=== PATIENT | male | born 1985 | race Caucasian/White ===

== ENCOUNTER 2016-11-02 10:35 | Emergency (ER) | payer OTHER ==
[2016-11-02 10:50] VITALS: BP 152/71; PULSE 90; TEMP 98.8; BMI 25.7
--- NOTE | 2016-11-02 11:02 | PDOC ---
History of Present Illness - General History Source: Patient Exam Limitations: No Limitations - History of Present Illness Initial Comments: 11/02/16 11:23 30y M hx of opiate abuse presents wanting detox via EMS. The pt states he feels an 'empty stomach' and wants something 'quick' that will prevent any further withdrawal symptoms. Pt dnies any nausea/vomiting. States he took EMS wanting to go to detox, but they said they couldnt take him directly to detox. pt has no other complaints including fever/chills,cough, cp, headache. pt last used oxycontin yesterday. pt staets he typically abuses any type of opiates that he can get his hands on. <Juan Jamison - Last Filed: 11/02/16 11:22> <Zbigniew Bello - Last Filed: 11/02/16 13:29> - General Chief Complaint: Substance Abuse Stated Complaint: WITHDRAWALS/DIZZINESS Time Seen by Provider: 11/02/16 10:56 Past History - Past Medical History Psychiatric Problems: Yes (BIPOLAR) - Psycho/Social/Smoking Cessation Hx Suicidal Ideation: No Smoking Status: Yes Smoking History: Current every day smoker Have you smoked in the past 12 months: Yes Number of Cigarettes Smoked Daily: 20 Information on smoking cessation initiated: No Hx Alcohol Use: No Drug/Substance Use Hx: Yes Substance Use Type: Heroin, Marijuana <Juan Jamison - Last Filed: 11/02/16 11:22> <Zbigniew Bello - Last Filed: 11/02/16 13:29> - Past Medical History Allergies/Adverse Reactions: Allergies Allergy/AdvReac Type Severity Reaction Status Date / Time No Known Allergies Allergy Verified 05/01/16 12:13 Home Medications: Ambulatory Orders Dextroamphetamine/Amphetamine [Adderall Xr 20 mg Capsule] 30 mg PO DAILY Divalproex Sodium [Depakote ER] 500 mg PO HS 11/02/16 Review of Systems - Review of Systems Able to Perform ROS?: Yes Comments:: 11/02/16 11:26 Constitutional - no reported Fever, Chills, HEENT: no reported vision changes, sore throat Respiratory: no reported cough, sob, hemoptysis Cardiac: no reported chest pain, palpitations, light headedness, leg swelling Abd/GI: "empty stomach" no reported nausea, vomiting, blood per rectum, melena , diarrhea : no reported dysuria, frequency, discharge Musculskelatal - no reported back pain, joint swelling skin - no reported bruising, erythema, rash neurological: no reported headache, numbness, focal weakness, tingling, ataxia, hematologic: no reported anemia, easy bruising, easy bleeding <Juan Jamisno - Last Filed: 11/02/16 11:22> *Physical Exam - Vital Signs Last Vital Signs Temp Pulse Resp BP Pulse Ox 98.8 F 90 20 152/71 99 11/02/16 10:48 11/02/16 10:48 11/02/16 10:48 11/02/16 10:48 11/02/16 10:48 - Physical Exam Comments: 11/02/16 11:26 GENERAL: The patient is awake, alert, and fully oriented, Nontoxic - in no acute distress. HEAD: Normocephalic, atraumatic. EYES: pupils 4mm and symmetrically reactive to light, extraocular movements intact, sclera anicteric, conjunctiva clear. ENT: Normal voice, Moist mucous membranes. LUNGS: Breath sounds equal, clear to auscultation bilaterally. No wheezes, no rhonchi, no rales. HEART: Regular rate and rhythm, normal S1 and S2 without murmur, rub or gallop. ABDOMEN: Soft, nontender, normoactive bowel sounds. No guarding, no rebound. EXTREMITIES: Normal range of motion, NEUROLOGICAL: No facial assymetry, Normal speech, PSYCH: Normal mood, normal affect. <Juan Jamison - Last Filed: 11/02/16 11:22> - Vital Signs Last Vital Signs Temp Pulse Resp BP Pulse Ox 98.8 F 90 20 152/71 99 11/02/16 10:48 11/02/16 10:48 11/02/16 10:48 11/02/16 10:48 11/02/16 10:48 <Zbigniew Bello - Last Filed: 11/02/16 13:29> Medical Decision Making - Medical Decision Making 11/02/16 11:01 30y M hx of opiate abuse presents via EMS for detox. Pt endorses some abd cramping, but dneis any n/v, diarrhea, fever/chills. on exam the pt appears well , abd is soft nontender. Pt is able to tolerate oral intake will transfer the patient to [facility] for detox discussed with dr. petersen and intake states we can send him to intake for further evaluation. I discussed the physical exam findings, ancillary test results and final diagnoses with the patient. I answered all of the patient's questions. The patient was satisfied with the care received and felt comfortable with the discharge plan and treatment plan. The patient will call their primary care physician within 24 hours to arrange follow-up and will return to the Emergency Department with any new, persistent or worsening symptoms. A portion of this note was documented by scribe services under my direction. I have reviewed the details of the note, within reason, and agree with the documentation with the following case summary and management plan written by me <Juan Jamison - Last Filed: 11/02/16 11:22> *DC/Admit/Observation/Transfer - Discharge Dispostion Admit: No <Juan Jamison - Last Filed: 11/02/16 11:22> - Attestations Scribe Attestion: Documentation prepared by Zbigniew Bello, acting as medical sales specialist for Juan Jamison MD. <Zbigniew Bello - Last Filed: 11/02/16 13:29> Diagnosis at time of Disposition: Opiate withdrawal - Discharge Dispostion Disposition: HOME Condition at time of disposition: Improved - Referrals Referrals: Detox, [facility] [Other] - Patient Instructions Printed Discharge Instructions: DI for Opioid Addiction Additional Instructions: Please report to [facility] detox for further evaluation. Print Language: VIETNAMESE
== END 2016-11-02 11:33 | disposition home or self-care (01) ==
LOC: JER 10:35
DX: F11.23 Opioid dependence with withdrawal (principal)
CPT/HCPCS: 99282-25

== ENCOUNTER 2016-11-05 02:06 | Inpatient (IN) | payer OTHER ==
--- NOTE | 2016-11-05 03:32 | HP ---
COWS - Scale Resting Pulse: 1= [place] 81-100 Sweatin=Flushed/Facial Moisture Restless Observation: 3= Extraneous Movement Pupil Size: 0= Normal to Room Light Bone or Joint Aches: 2= Severe Diffuse Aches Runny Nose/ Eye Tearin= Runny Nose/Eyes GI Upset > 30mins: 2= Nausea/Diarrhea Tremor Observation: 1= Tremor [place], Not Seen Yawning Observation: 1= 1-2x During Session Anxiety or Irritability: 1=Feels Anxious/Irritable Goose Flesh Skin: 3=Piloerection COWS Score: 18 Admission ROS S - [facility] Chief Complaint: WITHDRAWAL SYMPTOMS Allergies/Adverse Reactions: Allergies Allergy/AdvReac Type Severity Reaction Status Date / Time No Known Allergies Allergy Verified 05/01/16 12:13 History of Present Illness: 31 Y.O. MAN WITH AN EXTENSIVE HISTORY WITH HEROIN DEPENDENCE IS HERE SEEKING DETOX. HE REPORTS HIS LONG PERIOD OF SOBRIETY HAS BEEN 6 MONTHS WHILE HE WAS INCARCERATED. THIS IS HIS FIRST TIME AT [facility] BUT COMPLETED REHAB ELSEWHERE. Exam Limitations: No Limitations - Ebola screening Have you traveled outside of the country in the last 21 days: No - Review of Systems Constitutional: Chills, Loss of Appetite, Malaise, Night Sweats, Unintentional Wgt. Loss EENT: reports: Blurred Vision, Double Vision, Ear Discharge Respiratory: reports: Cough, Shortness of Breath Cardiac: reports: Chest Pain, Lightheadedness GI: reports: Diarrhea, Nausea, Poor Appetite : reports: No Symptoms Reported Musculoskeletal: reports: Back Pain, Joint Pain Integumentary: reports: No Symptoms Reported Neuro: reports: Headache Endocrine: reports: No Symptoms Reported Hematology: reports: No Symptoms Reported Psychiatric: reports: Orientated x3, Anxious, Depressed (ADHD), other Other Systems: Reviewed and Negative Patient History - Patient Medical History Hx Anemia: No Hx Asthma: No Hx Chronic Obstructive Pulmonary Disease (COPD): No Hx Cancer: No Hx Cardiac Disorders: No Hx Congestive Heart Failure: No Hx Hypertension: No Hx Hypercholesterolemia: No Hx Pacemaker: No HX Cerebrovascular Accident: No Hx Seizures: No Hx Dementia: No Hx Diabetes: No Hx Gastrointestinal Disorders: Yes (DYPEPSIA ) Hx Liver Disease: No Hx Genitourinary Disorders: No Hx Sexually Transmitted Disorders: No Hx Renal Disease (ESRD): No Hx Thyroid Disease: No Hx Human Immunodeficiency Virus (HIV): No Hx Hepatitis C: No Hx Depression: Yes Hx Suicide Attempt: Yes (2008-[employer]RI[employer]) Hx Bipolar Disorder: Yes Hx Schizophrenia: No - Patient Surgical History Past Surgical History: No - PPD History Previous Implant?: Yes Documented Results: Negative w/o proof PPD to be Administered?: Yes - Reproductive History Patient is a Female of Child Bearing Age (11 -55 yrs old): No - Smoking Cessation Smoking history: Current every day smoker Have you smoked in the past 12 months: Yes Aproximately how many cigarettes per day: 20 Initiated information on smoking cessation: Yes 'Breaking Loose' booklet given: 11/05/16 - Substance & Tx. History Hx Alcohol Use: No Hx Substance Use: Yes Substance Use Type: Heroin Hx Substance Use Treatment: Yes - Substances Abused Heroin Route: Injection Frequency: Daily Amount used: 2.5 BUNDLES Age of first use: 15 Date of Last Use: 11/04/16 Marijuana/Hashish Route: Smoking Frequency: 1-2 times per week Amount used: 4 JOINTS Age of first use: 10 Date of Last Use: 11/04/16 Family Disease History - Family Disease History Family Disease History: Diabetes: Grandparent, Heart Disease: Father () , Respiratory: Father, Other: Father Admission Physical Exam [facility] - Vital Signs Vital Signs: Last Vital Signs Temp Pulse Resp BP Pulse Ox 98.7 F 87 16 123/72 11/05/16 04:02 11/05/16 04:02 11/05/16 04:02 11/05/16 04:02 - Physical General Appearance: Yes: Irritable, Anxious HEENTM: Yes: Hearing grossly Normal, Normal ENT Inspection, Normocephalic Respiratory: Yes: Lungs Clear, Normal Breath Sounds, No Respiratory Distress, No Accessory Muscle Use Neck: Yes: No masses,lesions,Nodules Breast: Yes: Breast Exam Deferred Cardiology: Yes: Regular Rhythm, Regular Rate, S1, S2 Abdominal: Yes: Flat, Soft Genitourinary: Yes: Other (NO COMPLAINTS REPORTED) Back: Yes: Normal Inspection Musculoskeletal: Yes: Back pain Extremities: Yes: Normal Inspection, Normal Range of Motion, Non-Tender 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: 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: 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 intact, Fully Oriented, Alert Integumentary: Yes: Dry, Warm, Track Good - Diagnostic (1) Opioid dependence with withdrawal Current Visit: Yes Status: Chronic Cleared for Admission [facility] - Detox or Rehab [facility] Level of Care: Medically Managed Detox Regimen/Protocol: Methadone S Breath Alcohol Content Breath Alcohol Content: 0 Vital Signs - Vital Signs Vital Signs Refused: No Temperature: 98.7 F Temperature Source: Oral Pulse Rate: 87 Respiratory Rate: 16 Blood Pressure: 123/72 BP Location: Left Arm Blood Pressure Position: Sitting - Height Height: 5 ft 4 in - Weight Weight: 150 lb Weight Measurement Method: Standing Scale Body Mass Index (BMI): 25.7 Urine Drug Screen - Test Device Lot Number: [id number] Expiration Date: 05/23/18 - Control Is Test Valid: Yes - Results Drug Screen Negative: No Urine Drug Screen Results: THC-Marijuana, OPI-Opiates, PCP-Phencyclidine, OXY- Oxycodone
[2016-11-05] MEDS ORDERED: MAGNESIUM CITRATE 300 ML BOTTLE PO PRN (03:41)
[2016-11-05] MEDS ORDERED: MAG HYDROX/AL HYDROX/SIMETH 30 ML UNIT-DOSE CUP PO PRN (03:41)
[2016-11-05] MEDS ORDERED: MAGNESIUM HYDROX 2400MG/30ML ORAL SUSPENSION 30 ML CUP PO PRN (03:41)
[2016-11-05] MEDS ORDERED: LOPERAMIDE HCL 2 MG CAPSULE PO PRN (03:41)
[2016-11-05] MEDS ORDERED: METHADONE HCL 10 MG TABLET (FOR DETOX USE ONLY) PO ONE ×3 (03:41→23:00)
[2016-11-05] MEDS ORDERED: guaiFENesin/D-METHORPHAN HB 10 ML UNIT-DOSE CUPS PO PRN (03:41)
[2016-11-05] MEDS ORDERED: NICOTINE POLACRILEX 2 MG GUM BC PRN (03:41)
[2016-11-05] MEDS ORDERED: ACETAMINOPHEN 325 MG TABLET (FP) PO PRN (03:41)
[2016-11-05] MEDS ORDERED: hydrOXYzine PAMOATE 50 MG CAPSULE (FP) PO PRN (03:41)
[2016-11-05] MEDS ORDERED: IBUPROFEN 400 MG TABLET (FP) PO PRN (03:41)
[2016-11-05] MEDS ORDERED: diphenhydrAMINE HCL 50 MG CAPSULE PO PRN (03:41)
[2016-11-05] MEDS ORDERED: MENTHOL/PHENOL 1 EACH UD MM PRN (03:41)
[2016-11-05] MEDS ORDERED: P-EPHED 60MG/TRIPROLIDI 2.5MG TABLET PO PRN (03:41)
[2016-11-05 04:02] VITALS: BMI 25.7
[2016-11-05] MEDS: diazePAM 5 MG TABLET PO PRN ×3 (04:18→22:12)
[2016-11-05 10:03] LABS: MCH 26.1 pg (25.7-33.7); MCHC 32.9 g/dl (32.0-35.9); MEAN CELL VOLUME 79.3 fl (80-96); PLATELET COUNT 219 K/MM3 (134-434); RDW 14.8 % (11.9-15.9); WHITE BLOOD COUNT 7.1 K/mm3 (4.0-10.0)
[2016-11-05 10:09] LABS: ALBUMIN 3.4 g/dl (3.4-5.0); ANION GAP 8 (8-16); CALCIUM 8.3 mg/dL (8.5-10.1); CO2 31 mmol/L (21-32); GLUCOSE,RANDOM 93 mg/dL (74-106); SGOT/AST 68 U/L (15-37); SGPT/ALT 100 U/L (12-78)
[2016-11-05 10:11] LABS: ALK PHOS 83 U/L (45-117); BILIRUBIN,TOTAL 0.2 mg/dL (0.2-1.0); COCKROFT - GAULT 113.39; CREATININE 0.9 mg/dL (0.7-1.3); TOT PROT 6.3 g/dl (6.4-8.2)
[2016-11-05] MEDS: PRENATAL VITAMINS W/ FOLIC ACID TABLET (FP) PO SCH (10:41)
[2016-11-05] MEDS: NICOTINE 21 MG/24 HOURS TOPICAL PATCH TD SCH (10:42)
--- NOTE | 2016-11-05 11:32 | PN ---
[facility] Progress Note Note: Pt. was admitted earlier this AM, c/o withdrawal sx. Vital Signs - 8 hr 11/05/16 11/05/16 11/05/16 04:05 04:21 06:12 Temperature 98.7 F 98.7 F 99.7 F H Pulse Rate 87 87 97 H Respiratory 16 16 18 Rate Blood Pressure 123/72 123/72 133/88 11/05/16 09:18 Temperature 96.0 F L Pulse Rate 74 Respiratory 18 Rate Blood Pressure 117/68 Continue detox
[2016-11-05 13:27] LABS: HIV 1 & 2 AB NEGATIVE; HIV 1 AGp24 NEGATIVE
[2016-11-05 16:20] LABS: URINE APPEARANCE CLEAR; URINE BILIRUBIN NEGATIVE (NEGATIVE); URINE BLOOD NEGATIVE (NEGATIVE); URINE COLOR STRAW; URINE GLUCOSE (UA) NEGATIVE (NEGATIVE); URINE KETONE NEGATIVE (NEGATIVE); URINE LEUK ESTERASE NEGATIVE (NEGATIVE); URINE NITRITE NEGATIVE (NEGATIVE); URINE PROTEIN NEGATIVE (NEGATIVE); URINE UROBILINOGEN NEGATIVE E.U./dl (0.2-1.0)
--- NOTE | 2016-11-05 17:28 | CONSULT ---
[facility] Psychiatric Consult - Data Date of interview: 11/05/16 Admission source: [facility] Identifying data: First admission to [facility] for this 31 y/o male seeking detox treatment for heroin,methamphetamine and cocaine dependence.Patient is single without children,domiciled,unemployed and supported on SSI benefits. Substance Abuse History: - Smoking Cessation. Smoking history: Current every day smoker. Have you smoked in the past 12 months: Yes. Aproximately how many cigarettes per day: 20. Initiated information on smoking cessation: Yes. ' Breaking Loose' booklet given: 11/05/16. - Substance & Tx. History. Hx Alcohol Use: No. Hx Substance Use: Yes. Substance Use Type: Heroin. Hx Substance Use Treatment: Yes. - Substances Abused. Heroin. Route: Injection. Frequency: Daily. Amount used: 2.5 BUNDLES. Age of first use: 15. Date of Last Use: 11/04/16. Marijuana/Hashish. Route: Smoking. Frequency : 1-2 times per week. Amount used: 4 JOINTS. Age of first use: 10. Date of Last Use: 11/04/16. Confirmed by patient. Medical History: Dyspepsia. Psychiatric History: Patient is a superficially cooperative,irritable and hostile historian.He reports a history of one psychiatric hospitalization in [place] (2008).Diagnosed with Bipolar Disorder and ADHD (self-report) .Prescribed adderall and depakote (doses not recalled).Mr Colindres states that he gets his outpatient psychiatric services at the [facility] in [facility].Date of most recent intake of medications : not offered.Patient admits to one suicide attempt via wrist-cutting (2007). Physical/Sexual Abuse/Trauma History: Patient denies. Additional Comment: Urine Drug Screen Results: THC-Marijuana, OPI-Opiates, PCP- Phencyclidine, OXY-Oxycodone.Noted. Mental Status Exam - Mental Status Exam Alert and Oriented to: Time, Place, Person Cognitive Function: Good Patient Appearance: Well Groomed Mood: Withdrawn, Irritable Affect: Mood Congruent Patient Behavior: Sedated (light sedation), Fatigued Speech Pattern: Clear (non-spontaneous), Delayed Voice Loudness: Normal Thought Process: Goal Oriented Thought Disorder: Not Present Hallucinations: Denies Suicidal Ideation: Denies Homicidal Ideation: Denies Insight/Judgement: Poor Sleep: Well Appetite: Good Muscle strength/Tone: Normal Gait/Station: Normal Psychiatric Findings - Problem List ([place] 1, 2,3) (1) Opioid dependence with withdrawal Current Visit: Yes Status: Acute (2) Marijuana dependence Current Visit: Yes Status: Acute (3) PCP (phencyclidine) abuse Current Visit: Yes Status: Acute (4) Amphetamine abuse Current Visit: Yes Status: Acute (5) Nicotine dependence Current Visit: Yes Status: Acute (6) Substance induced mood disorder Current Visit: Yes Status: Acute (7) Cellulitis of right hand Current Visit: Yes Status: Acute - Initial Treatment Plan Initial Treatment Plan: Psychoeducation.Detoxification.Noted abnormal liver enzymes.Depakote held.Adderall deferred (patient is advised to return to his OPD psychiatrist for follow-up).patient is in agreement with this careplan.Observation.
[2016-11-05] MEDS ORDERED: THIAMINE HCL 100 MG TABLET (FP) PO SCH (22:00)
[2016-11-06] MEDS: diazePAM 5 MG TABLET PO PRN ×2 (06:02→10:06)
[2016-11-06] MEDS ORDERED: METHADONE HCL 10 MG TABLET (FOR DETOX USE ONLY) PO ONE (10:00)
[2016-11-06] MEDS: PRENATAL VITAMINS W/ FOLIC ACID TABLET (FP) PO SCH (10:06)
[2016-11-06] MEDS: NICOTINE 21 MG/24 HOURS TOPICAL PATCH TD SCH (10:07)
--- NOTE | 2016-11-06 10:12 | PN ---
S COWS - Scale Resting Pulse: 1= [place] 81-100 Sweatin=Flushed/Facial Moisture Restless Observation: 1= Difficult to Sit Still Pupil Size: 0= Normal to Room Light Bone or Joint Aches: 1= Mild Discomfort Runny Nose/ Eye Tearin= Nasal Congestion GI Upset > 30mins: 1= Stomach Cramp Tremor Observation of Outstretched Hands: 2= Slight Tremor Visible Yawning Observation: 1= 1-2x During Session Anxiety or Irritability: 2=Irritable/Anxious Goose Flesh Skin: 0=Smooth Skin COWS Score: 12 S Progress Note (SOAP) Subjective: Anxiety,sweating,body aches,interrupted sleep,restless. Objective: 11/06/16 10:11 Last Vital Signs Temp Pulse Resp BP Pulse Ox 96.7 F L 93 H 18 118/66 11/06/16 09:39 11/06/16 09:39 11/06/16 09:39 11/06/16 09:39 Laboratory Tests 11/05/16 11/05/16 11/05/16 08:00 08:00 08:00 WBC RBC Hgb Hct MCV MCHC RDW Plt Count MPV Sodium 139 Potassium 4.3 Chloride 100 Carbon Dioxide 31 Anion Gap 8 BUN 15 D Creatinine 0.9 Creat Clearance w eGFR > 60 Random Glucose 93 Calcium 8.3 L Total Bilirubin 0.2 D AST 68 H D ALT 100 H D Alkaline Phosphatase 83 D Total Protein 6.3 L Albumin 3.4 Urine Color Urine Appearance Urine pH Ur Specific [place] Urine Protein Urine Glucose (UA) Urine Ketones Urine Blood Urine Nitrite Urine Bilirubin Urine Urobilinogen Ur Leukocyte Esterase RPR Titer Nonreactive HIV 1&2 Antibody Screen Negative HIV P24 Antigen Negative 11/05/16 11/05/16 08:50 13:20 WBC 7.1 RBC 4.54 Hgb 11.8 Hct 36.0 MCV 79.3 L MCHC 32.9 RDW 14.8 D Plt Count 219 D MPV 8.0 Sodium Potassium Chloride Carbon Dioxide Anion Gap BUN Creatinine Creat Clearance w eGFR Random Glucose Calcium Total Bilirubin AST ALT Alkaline Phosphatase Total Protein Albumin Urine Color Straw Urine Appearance Clear Urine pH 6.0 Ur Specific [place] 1.020 Urine Protein Negative Urine Glucose (UA) Negative Urine Ketones Negative Urine Blood Negative Urine Nitrite Negative Urine Bilirubin Negative Urine Urobilinogen Negative Ur Leukocyte Esterase Negative RPR Titer HIV 1&2 Antibody Screen HIV P24 Antigen labs noted Assessment: 11/06/16 10:11 Withdrawal sx. Plan: Continue detox
[2016-11-06 16:58] VITALS: BP 111/60; PULSE 76; TEMP 98.9
--- NOTE | 2016-11-06 23:57 | DS ---
[facility] Detox Discharge Summary Admission Date: 11/05/16 Discharge Date: 11/06/16 - History Present History: Cannabis Dependence, Opioid Dependence Additional Comments: patient wants to leave the unit, refuses to wait face to face with the provider Pertinent Past History: pcp dependence amphetamine - Physical Exam Results Vital Signs: Vital Signs Temperature 98.9 F 11/06/16 16:58 Pulse Rate 76 11/06/16 16:58 Respiratory Rate 18 11/06/16 16:58 Blood Pressure 111/60 11/06/16 16:58 O2 Sat by Pulse Oximetry (%) Pertinent Admission Physical Exam Findings: withdrawal sx Laboratory Last Values WBC 7.1 K/mm3 (4.0-10.0) 11/05/16 08:50 RBC 4.54 M/mm3 (4.00-5.60) 11/05/16 08:50 Hgb 11.8 GM/dL (11.7-16.9) 11/05/16 08:50 Hct 36.0 % (35.4-49) 11/05/16 08:50 MCV 79.3 fl (80-96) L 11/05/16 08:50 MCHC 32.9 g/dl (32.0-35.9) 11/05/16 08:50 RDW 14.8 % (11.9-15.9) D 11/05/16 08:50 Plt Count 219 K/MM3 (134-434) D 11/05/16 08:50 MPV 8.0 fl (7.5-11.1) 11/05/16 08:50 Sodium 139 mmol/L (136-145) 11/05/16 08:00 Potassium 4.3 mmol/L (3.5-5.1) 11/05/16 08:00 Chloride 100 mmol/L (98-107) 11/05/16 08:00 Carbon Dioxide 31 mmol/L (21-32) 11/05/16 08:00 Anion Gap 8 (8-16) 11/05/16 08:00 BUN 15 mg/dL (7-18) D 11/05/16 08:00 Creatinine 0.9 mg/dL (0.7-1.3) 11/05/16 08:00 Creat Clearance w eGFR > 60 (>60) 11/05/16 08:00 Random Glucose 93 mg/dL (74-106) 11/05/16 08:00 Calcium 8.3 mg/dL (8.5-10.1) L 11/05/16 08:00 Total Bilirubin 0.2 mg/dL (0.2-1.0) D 11/05/16 08:00 AST 68 U/L (15-37) H D 11/05/16 08:00 ALT 100 U/L (12-78) H D 11/05/16 08:00 Alkaline Phosphatase 83 U/L (45-117) D 11/05/16 08:00 Total Protein 6.3 g/dl (6.4-8.2) L 11/05/16 08:00 Albumin 3.4 g/dl (3.4-5.0) 11/05/16 08:00 Urine Color Straw 11/05/16 13:20 Urine Appearance Clear 11/05/16 13:20 Urine pH 6.0 (5.0-8.0) 11/05/16 13:20 Ur Specific [place] 1.020 (1.005-1.025) 11/05/16 13:20 Urine Protein Negative (NEGATIVE) 11/05/16 13:20 Urine Glucose (UA) Negative (NEGATIVE) 11/05/16 13:20 Urine Ketones Negative (NEGATIVE) 11/05/16 13:20 Urine Blood Negative (NEGATIVE) 11/05/16 13:20 Urine Nitrite Negative (NEGATIVE) 11/05/16 13:20 Urine Bilirubin Negative (NEGATIVE) 11/05/16 13:20 Urine Urobilinogen Negative E.U./dl (0.2-1.0) 11/05/16 13:20 Ur Leukocyte Esterase Negative (NEGATIVE) 11/05/16 13:20 Valproic Acid < 3.000 ug/ml (50-100) L 11/06/16 06:00 RPR Titer Nonreactive (NONREACTIVE) 11/05/16 08:00 HIV 1&2 Antibody Screen Negative 11/05/16 08:00 HIV P24 Antigen Negative 11/05/16 08:00 lab noted - Treatment Hospital Course: Detox Protocol Followed, Responded well - Medication Discharge Medications: Ambulatory Orders Dextroamphetamine/Amphetamine [Adderall Xr 20 mg Capsule] 30 mg PO DAILY Divalproex Sodium [Depakote ER] 500 mg PO HS 11/02/16 - Diagnosis (1) Nicotine dependence Status: Acute Qualifiers: Nicotine product type: cigarettes Substance use status: in withdrawal Qualified Code(s): F17.213 - Nicotine dependence, cigarettes, with withdrawal (2) Opioid dependence with withdrawal Status: Acute (3) Cocaine dependence, uncomplicated Status: Chronic (4) Cannabis dependence, uncomplicated Status: Chronic - AMA Did Patient Leave Against Medical Advice: Yes
[2016-11-07] MEDS ORDERED: METHADONE HCL 5 MG TABLET (FOR DETOX USE ONLY) PO ONE (10:00)
[2016-11-08] MEDS ORDERED: METHADONE HCL 5 MG TABLET (FOR DETOX USE ONLY) PO ONE (10:00)
[2016-11-09] MEDS ORDERED: METHADONE HCL 10 MG TABLET (FOR DETOX USE ONLY) PO ONE (10:00)
[2016-11-10] MEDS ORDERED: METHADONE HCL 5 MG TABLET (FOR DETOX USE ONLY) PO ONE (06:00)
== END 2016-11-06 17:26 | disposition left against medical advice (07) | DRG 770 ==
LOC: YASAS 02:06 → Y3N 03:07
PROVIDERS: ADMIT Internal Medicine; ATTEND Internal Medicine
PROC: HZ2ZZZZ Detoxification Services for Substance Abuse Treatment (ICD-10-PCS; principal; 2016-11-05)
DX: F11.23 Opioid dependence with withdrawal (principal); F14.20 Cocaine dependence, uncomplicated; F16.10 Hallucinogen abuse, uncomplicated; F12.10 Cannabis abuse, uncomplicated; F17.213 Nicotine dependence, cigarettes, with withdrawal; F19.24 Other psychoactive substance dependence with psychoactive substance-induced mood disorder; L03.113 Cellulitis of right upper limb; Z91.5 Personal history of self-harm
CPT/HCPCS: 36415; 80053; 80164; 81003; 85027; 86593; 87389

== ENCOUNTER 2020-05-30 20:53 | Emergency (ER) | payer OTHER ==
[2020-05-30 21:00] VITALS: BP 117/74; PULSE 100; TEMP 98.2; BMI 26.5
[2020-05-30] MEDS ORDERED: KETOROLAC TROMETHAMINE 30 MG/1 ML VIAL IM ONE (21:20)
[2020-05-30] MEDS ORDERED: METHOCARBAMOL 500 MG TABLET PO ONE (21:20)
[2020-05-30] MEDS ORDERED: KETOROLAC TROMETHAMINE 30 MG/1 ML VIAL ONE (21:55)
[2020-05-30] MEDS ORDERED: METHOCARBAMOL 500 MG TABLET ONE (21:55)
== END 2020-05-30 22:12 | disposition home or self-care (01) ==
LOC: JERFT 20:53
PROC: 3E0233Z Introduction of Anti-inflammatory into Muscle, Percutaneous Approach (ICD-10-PCS; principal; 2020-05-30)
DX: M79.652 Pain in left thigh (principal); M54.5 Low back pain; V87.7XXA Person injured in collision between other specified motor vehicles (traffic), initial encounter
CPT/HCPCS: 73552-TC-LT-FY; 99284-25

== ENCOUNTER 2020-08-03 10:52 | Inpatient (IN) | payer OTHER ==
[2020-08-03 11:27] VITALS: BMI 30.9
[2020-08-03] MEDS ORDERED: METHADONE HCL 10 MG TABLET (FOR DETOX USE ONLY) PO ONE (12:02)
[2020-08-03] MEDS ORDERED: BISMUTH SUBSALICYLATE 262 MG/15 ML BTL PO PRN (12:02)
[2020-08-03] MEDS ORDERED: MENTHOL/PHENOL 1 EACH UD MM PRN (12:02)
[2020-08-03] MEDS ORDERED: cloNIDine HCL 0.1 MG TABLET PO PRN (12:02)
[2020-08-03] MEDS ORDERED: MAGNESIUM HYDROX 2400MG/30ML ORAL SUSPENSION 30 ML CUP PO PRN (12:02)
[2020-08-03] MEDS ORDERED: NICOTINE POLACRILEX 2 MG GUM BUC PRN (12:02)
[2020-08-03] MEDS ORDERED: ONDANSETRON *ODT* 4 MG TABLET SL PRN (12:02)
[2020-08-03] MEDS ORDERED: METHOCARBAMOL 500 MG TABLET PO PRN (12:02)
[2020-08-03] MEDS ORDERED: IBUPROFEN 400 MG TABLET (FP) PO PRN (12:02)
[2020-08-03] MEDS ORDERED: MAGNESIUM CITRATE 300 ML BOTTLE PO PRN (12:02)
[2020-08-03] MEDS ORDERED: ACETAMINOPHEN 325 MG TABLET (FP) PO PRN ×2 (12:02)
[2020-08-03] MEDS ORDERED: MAG HYDROX/AL HYDROX/SIMETH 30 ML UNIT-DOSE CUP PO PRN (12:02)
[2020-08-03] MEDS: NICOTINE 21 MG/24 HOURS TOPICAL PATCH TD SCH (13:04)
[2020-08-03] MEDS ORDERED: hydrOXYzine PAMOATE 25 MG CAPSULE (FP) PO SCH (14:00)
[2020-08-03] MEDS ORDERED: hydrOXYzine PAMOATE 25 MG CAPSULE (FP) PO PRN (15:22)
[2020-08-03 17:21] LABS: HEMATOCRIT 37.4 % (35.4-49); HEMOGLOBIN 12.4 GM/dL (11.7-16.9); MCH 26.2 pg (25.7-33.7); MCHC 33.1 g/dl (32.0-35.9); MEAN PLT VOLUME 8.7 fl (7.5-11.1); PLATELET COUNT 243 K/MM3 (134-434); RBC 4.73 M/mm3 (4.00-5.60); RDW 15.2 % (11.9-15.9); WHITE BLOOD COUNT 8.8 K/mm3 (4.0-10.0)
[2020-08-03 17:33] LABS: POTASSIUM 4.3 mmol/L (3.5-5.1)
[2020-08-03 17:35] LABS: CALCIUM 8.7 mg/dL (8.5-10.1)
[2020-08-03 17:36] LABS: ALBUMIN 3.8 g/dl (3.4-5.0); BLOOD UREA NITROGEN 11.8 mg/dL (7-18)
[2020-08-03 17:39] LABS: CREATININE 0.8 mg/dL (0.55-1.3)
[2020-08-03 17:40] LABS: BILIRUBIN,TOTAL 0.3 mg/dL (0.2-1)
[2020-08-03 17:41] LABS: TOT PROT 7.1 g/dl (6.4-8.2)
[2020-08-03 18:21] LABS: HIV INTERPRETATION NEGATIVE (NEGATIVE)
[2020-08-03] MEDS: THIAMINE HCL 100 MG TABLET (FP) PO SCH (22:51)
[2020-08-03] MEDS: MELATONIN 5 MG TABLETS PO SCH (22:51)
[2020-08-04] MEDS ORDERED: METHADONE HCL 10 MG TABLET (FOR DETOX USE ONLY) ONE (09:14)
[2020-08-04] MEDS ORDERED: METHADONE HCL 5 MG TABLET (FOR DETOX USE ONLY) ONE (09:14)
[2020-08-04] MEDS ORDERED: METHADONE (DETOX) 20 MG, METHADONE (DETOX) 5 MG PO ONE (10:00)
[2020-08-04] MEDS: NICOTINE 21 MG/24 HOURS TOPICAL PATCH TD SCH (10:05)
[2020-08-04] MEDS: PRENATAL VITAMINS W/ FOLIC ACID TABLET (FP) PO SCH (10:05)
[2020-08-04] MEDS: MELATONIN 5 MG TABLETS PO SCH (22:37)
[2020-08-04] MEDS: THIAMINE HCL 100 MG TABLET (FP) PO SCH (22:37)
[2020-08-05 09:17] VITALS: BP 91/57; PULSE 54; TEMP 96.9
[2020-08-05] MEDS ORDERED: diazePAM 5 MG TABLET PO PRN (09:40)
[2020-08-05] MEDS ORDERED: METHADONE HCL 10 MG TABLET (FOR DETOX USE ONLY) PO ONE (10:00)
[2020-08-05] MEDS: PRENATAL VITAMINS W/ FOLIC ACID TABLET (FP) PO SCH (10:00)
[2020-08-05] MEDS: NICOTINE 21 MG/24 HOURS TOPICAL PATCH TD SCH (10:01)
[2020-08-05] MEDS ORDERED: diazePAM 5 MG TABLET PO SCH (11:00)
[2020-08-06] MEDS ORDERED: METHADONE (DETOX) 10 MG, METHADONE (DETOX) 5 MG PO ONE (10:00)
[2020-08-07] MEDS ORDERED: diazePAM 5 MG TABLET PO SCH (06:00)
[2020-08-07] MEDS ORDERED: METHADONE HCL 10 MG TABLET (FOR DETOX USE ONLY) PO ONE (10:00)
[2020-08-08] MEDS ORDERED: METHADONE HCL 5 MG TABLET (FOR DETOX USE ONLY) PO ONE (06:00)
[2020-08-08] MEDS ORDERED: diazePAM 5 MG TABLET PO SCH (06:00)
[2020-08-09] MEDS ORDERED: diazePAM 5 MG TABLET PO ONE (06:00)
== END 2020-08-05 11:30 | disposition left against medical advice (07) | DRG 770 ==
LOC: YASAS 10:52 → Y3N 11:57
PROVIDERS: ADMIT Allergy & Immunology; ATTEND Allergy & Immunology
PROC: HZ2ZZZZ Detoxification Services for Substance Abuse Treatment (ICD-10-PCS; principal; 2020-08-03)
DX: F11.23 Opioid dependence with withdrawal (principal); F10.230 Alcohol dependence with withdrawal, uncomplicated; F14.10 Cocaine abuse, uncomplicated; F17.210 Nicotine dependence, cigarettes, uncomplicated; F31.9 Bipolar disorder, unspecified; F19.24 Other psychoactive substance dependence with psychoactive substance-induced mood disorder; F90.9 Attention-deficit hyperactivity disorder, unspecified type; M54.5 Low back pain; Z91.5 Personal history of self-harm; Z91.14 Patient's other noncompliance with medication regimen
CPT/HCPCS: 36415; 80053; 85027; 86780; 87389; C9803; U0003

== ENCOUNTER 2021-03-03 19:56 | Inpatient (IN) | payer OTHER ==
[2021-03-03 20:02] VITALS: BP 118/72; PULSE 83; TEMP 97; BMI 26.5
[2021-03-03 22:13] LABS: BASO % 0.2 % (0-2.0); EOS % 0.8 % (0-4.5); HEMATOCRIT 33.4 % (35.4-49); HEMOGLOBIN 11.2 GM/dL (11.7-16.9); LYMPH % 17.7 % (8-40); MCH 25.8 pg (25.7-33.7); MCHC 33.6 g/dl (32.0-35.9); MEAN CELL VOLUME 76.6 fl (80-96); MEAN PLT VOLUME 7.8 fl (7.5-11.1); NEUT % 74.3 % (42.8-82.8); PLATELET COUNT 261 10^3/uL (134-434); RBC 4.36 M/mm3 (4.00-5.60); RDW 15.5 % (11.9-15.9); WHITE BLOOD COUNT 8.7 K/mm3 (4.0-10.0)
[2021-03-03 22:26] LABS: INR 1.24 (0.83-1.09); PROTHROMBIN TIME (PATIENT) 15.1 SEC (9.7-13.0)
[2021-03-03 22:28] LABS: ACTIVATED PTT 32.5 SECONDS (25.2-36.5)
[2021-03-03 22:34] LABS: CALCIUM 8.6 mg/dL (8.5-10.1)
[2021-03-03 22:35] LABS: ALBUMIN 3.8 g/dl (3.4-5.0); BLOOD UREA NITROGEN 12.7 mg/dL (7-18)
[2021-03-03 22:38] LABS: CREATININE 0.9 mg/dL (0.55-1.3)
[2021-03-03 22:39] LABS: BILIRUBIN,TOTAL 0.4 mg/dL (0.2-1); TOT PROT 7.6 g/dl (6.4-8.2)
[2021-03-03] MEDS ORDERED: LACTATED RINGERS SOLUTION 1000 ML INFUS.BAG IV ONE (23:50)
[2021-03-03] MEDS ORDERED: ACETAMINOPHEN 1000 MG/100 ML VIAL (NON FORMULARY) IVPB ONE (23:50)
[2021-03-03] MEDS ORDERED: VANCOMYCIN 1 GM in D5W (PRE-DOCKED) 1,000 MG/250 ML IVPB ONE (23:50)
[2021-03-03] MEDS ORDERED: PIPERACILLIN/TAZOB 4.5 GM 4.5 GM in DEXTROSE 5%-WATER 100 ML IVPB ONE (23:51)
[2021-03-04] MEDS ORDERED: ACETAMINOPHEN INJECTION 100 ML IVPB ONE (00:03)
[2021-03-04] MEDS ORDERED: VANCOMYCIN 1 GRAM (PRE-DOCKED) 1,000 MG/250 ML BAG IVPB ONE (00:04)
[2021-03-04] MEDS ORDERED: PIPERACILLIN/TAZOB 4.5 GM 4.5 GM/100 ML BAG IVPB ONE (00:05)
[2021-03-04] MEDS ORDERED: PIPERACILLIN/TAZOB 3.375 GM 3.375 GM in DEXTROSE 5%-WATER - 50 ML IVPB SCH ×2 (03:00→06:30)
[2021-03-04] MEDS ORDERED: MELATONIN 5 MG TABLETS PO PRN (03:02)
[2021-03-04] MEDS ORDERED: ACETAMINOPHEN 325 MG TABLET (FP) PO PRN ×2 (03:03→03:29)
[2021-03-04] MEDS ORDERED: PIPERACILLIN/TAZOBACTAM 3.375 GM VIAL IVPB ONE ×2 (05:44→11:46)
[2021-03-04] MEDS ORDERED: DEXTROSE 5%-WATER - 50 ML IVPB ONE ×2 (05:44→11:46)
[2021-03-04] MEDS: PIPERACILLIN/TAZOB 3.375 GM 3.375 GM in DEXTROSE 5%-WATER - 50 ML IVPB SCH ×2 (07:24→11:59)
[2021-03-04] MEDS ORDERED: NICOTINE 7 MG/24 HOURS TOPICAL PATCH TD SCH (10:00)
[2021-03-04] MEDS ORDERED: ENOXAPARIN NA (PORCINE) 40 MG/0.4 ML DISP.SYRIN SQ SCH (10:00)
[2021-03-04] MEDS ORDERED: VANCOMYCIN 1 GM in D5W (PRE-DOCKED) 1,000 MG/250 ML IVPB SCH (10:00)
[2021-03-04] MEDS ORDERED: VANCOMYCIN 1,000 MG in DEXTROSE 5%-WATER - 250 ML IVPB SCH (12:00)
[2021-03-04] MEDS ORDERED: VANCOMYCIN 1 GRAM (PRE-DOCKED) 1,000 MG/250 ML BAG IVPB SCH (12:00)
[2021-03-04] MEDS ORDERED: LORazepam 2 MG/ML SDV VIAL IM PRN (14:08)
== END 2021-03-04 14:40 | disposition left against medical advice (07) | DRG 383 ==
LOC: JER 19:56 → JERBED 20:56 → J8W 03-04 04:15
PROVIDERS: ADMIT Internal Medicine; ATTEND Internal Medicine
DX: L03.211 Cellulitis of face (principal); R78.81 Bacteremia; L02.01 Cutaneous abscess of face; F20.9 Schizophrenia, unspecified; D50.9 Iron deficiency anemia, unspecified; F90.9 Attention-deficit hyperactivity disorder, unspecified type; F32.9 Major depressive disorder, single episode, unspecified; R45.1 Restlessness and agitation; R51.9 Headache, unspecified; E86.0 Dehydration; R60.0 Localized edema; J34.2 Deviated nasal septum; R73.9 Hyperglycemia, unspecified; G47.00 Insomnia, unspecified; F17.210 Nicotine dependence, cigarettes, uncomplicated
CPT/HCPCS: 36415; 70450-TC; 70481-TC; 80053; 85025; 85610; 85730; 86140; 86850; 86900; 86901; 87040; 99285-25; C9803; J0131; Q9967; U0003; U0005